=== PATIENT | female | born 1995 | race African-American/Black ===

== ENCOUNTER 2018-03-27 23:10 | Emergency (ER) | payer SELFPAY ==
[2018-03-28] MEDS ORDERED: IBUPROFEN 600 MG TABLET PO ONE (00:36)
--- NOTE | 2018-03-28 00:38 | ER Document Report ---
HPI - HPI Patient complains to provider of: right elbow injury Pain Level: 5 Context: Patient is a 22-year-old female that comes to the emergency department for chief complaint of right elbow injury, she states she lost balance, fell forward , and landed on her right elbow. She reports swelling and inability to extend at the elbow. She denies head injury, shoulder injury, back injury, or any other areas of pain. She denies any daily prescribed medications or medical problems. LMP within the past month. - REPRODUCTIVE Reproductive: DENIES: : Past Medical History - General Information source: Patient - Social History Smoking Status: Never Smoker Frequency of alcohol use: None Drug Abuse: None Lives with: Family Family History: None, Reviewed & Not Pertinent - Immunizations Immunizations up to date: Yes Hx Diphtheria, Pertussis, Tetanus Vaccination: Yes Vertical Provider Document - CONSTITUTIONAL General Appearance: WD/WN, No Apparent Distress - INFECTION CONTROL TRAVEL OUTSIDE OF THE [place] IN LAST 30 DAYS: No - HEENT HEENT: Atraumatic, Normal ENT Exam, Normocephalic - NECK Neck: Normal Inspection - RESPIRATORY Respiratory: Breath Sounds Normal, No Respiratory Distress - CARDIOVASCULAR Cardiovascular: Regular Rate, Regular Rhythm - GI/ABDOMEN Gastrointestinal: Abdomen Soft, Abdomen Non-Tender - BACK Back: Normal Inspection - MUSCULOSKELETAL/EXTREMETIES Musculoskeletal/Extremeties: Tender - Tender over the right elbow with questionable mild soft tissue swelling, range of motion at the elbow is normal, normal shoulder, wrist, hand exam, normal distal neurovascular exam. - NEURO Level of Consciousness: Awake, Alert, Appropriate - DERM Integumentary: Warm, Dry, No Rash Course - Re-evaluation Re-evalutation: There appears to be minimal soft tissue swelling over the right elbow her patient reports she injured the arm, no open wounds, she is able to extend without difficulty, normal examination otherwise with normal distal neurovascular exam. X-ray unremarkable. Appears to be soft tissue injury only. Discussed this with patient, provided her with a sling after discussion, she requests Toradol specifically for pain. She was provided with this, discussed additional care, follow-up, and return precautions. Patient states understanding and agreement. - Vital Signs Vital signs: Temp Pulse Resp BP Pulse Ox 98.3 F 96 114/60 99 03/27/18 23:24 03/27/18 23:24 03/27/18 23:24 03/27/18 23:24 Procedures - Immobilization right elbow Immobilizer type: Sling Performed by: PCT Post-Proc Neuro Vasc Exam: Normal Alignment checked and good: Yes Discharge - Discharge Clinical Impression: Injury of right elbow Qualifiers: Encounter type: initial encounter Qualified Code(s): S59.901A - Unspecified injury of right elbow, initial encounter Condition: Stable Disposition: HOME, SELF-CARE Additional Instructions: The x-ray does not show any fracture or concerning abnormality. This appears to be soft tissue injury only. Apply ice to the area 3-4 times a day for 10-15 minutes, rest, you can wear the sling, remember to take her elbow out of the spring frequently to perform range of motion. Take the medication as prescribed. Symptoms should resolve with time. If symptoms do not improve follow-up with orthopedics, return for any concerning symptoms including severe swelling or pain. Prescriptions: Ketorolac Tromethamine [Toradol 10 mg Tablet] 10 mg PO Q8HP PRN #24 tablet PRN Reason:
--- NOTE | 2018-03-28 01:41 | RADIOLOGY REPORT (SQ) ---
EXAM DESCRIPTION: XR ELBOW 3 VIEWS COMPLETED DATE/TME: 03/28/2018 00:35 CLINICAL HISTORY: 22 years, Female, fall, injury, pain COMPARISON: None. FINDINGS: 4 views of the right elbow. No acute fracture or dislocation. Normal osseous mineralization. No definite joint effusion. IMPRESSION: No acute fracture or dislocation. 2011 [employer]- All Rights Reserved
[2018-03-28 02:36] VITALS: BP 108/80
== END 2018-03-28 02:30 | disposition home or self-care (01) ==
LOC: ER 23:10
DX: S59.901A Unspecified injury of right elbow, initial encounter (principal); W01.0XXA Fall on same level from slipping, tripping and stumbling without subsequent striking against object, initial encounter
CPT/HCPCS: 99283

== ENCOUNTER 2019-11-13 20:45 | Emergency (ER) | payer SELFPAY ==
[2019-11-14] MEDS ORDERED: CEPHALEXIN 500 MG CAPSULE PO ONE (00:27)
[2019-11-14] MEDS ORDERED: IBUPROFEN 800 MG TABLET PO ONE (00:27)
--- NOTE | 2019-11-14 00:29 | ER Document Report ---
HPI - HPI Patient complains to provider of: Lump behind ear Time Seen by Provider: 11/13/19 23:59 Onset: This evening Onset/Duration: Sudden Quality of pain: Achy Pain Level: 3 Context: Patient states that she noticed that she had tenderness behind her right ear. Patient states when she felt the area she noticed a swelling. Patient denies any trauma to the area. Patient denies any fever. Patient denies any change in hearing. Exacerbated by: Denies Relieved by: Denies Similar symptoms previously: No Recently seen / treated by doctor: No - ROS ROS below otherwise negative: Yes Systems Reviewed and Negative: Yes All other systems reviewed and negative - CONSTITUTIONAL Constitutional: DENIES: Fever, Chills - EENT EENT: REPORTS: Ear Pain - GASTROINTESTINAL Gastrointestinal: DENIES: Nausea - REPRODUCTIVE Reproductive: DENIES: : - MUSCULOSKELETAL Musculoskeletal: DENIES: Neck Pain - DERM Skin Color: Normal Skin Problems: None Past Medical History - General Information source: Patient - Social History Smoking Status: Current Every Day Smoker Frequency of alcohol use: None Drug Abuse: None Occupation: [employer] Lives with: Family Family History: None, Reviewed & Not Pertinent - Medical History Medical History: Negative Renal/ Medical History: Denies: Hx Peritoneal Dialysis Surgical Hx: Negative - Immunizations Immunizations up to date: Yes Hx Diphtheria, Pertussis, Tetanus Vaccination: Yes Vertical Provider Document - CONSTITUTIONAL Agree With Documented VS: Yes Exam Limitations: No Limitations General Appearance: WD/WN, No Apparent Distress - INFECTION CONTROL TRAVEL OUTSIDE OF THE [place] IN LAST 30 DAYS: No - HEENT HEENT: Atraumatic, Normocephalic. negative: Pharyngeal Exudate, Pharyngeal Tenderness, Tympanic Membrane Red Notes: Patient with tender lymph nodes to the postauricular area bilaterally, 3 nodes noted behind the right ear, 1 noted behind the left ear. - NECK Neck: Normal Inspection, Supple. negative: Lymphadenopathy-Left, Lymphadenopathy-Right - RESPIRATORY Respiratory: Breath Sounds Normal, No Respiratory Distress - CARDIOVASCULAR Cardiovascular: Regular Rate, Regular Rhythm - MUSCULOSKELETAL/EXTREMETIES Musculoskeletal/Extremeties: MAEW, FROM - NEURO Level of Consciousness: Awake, Alert, Appropriate Motor/Sensory: No Motor Deficit - DERM Integumentary: Warm, Dry, Rash - Patient with dry flaking skin noted to scalp Course - Re-evaluation Re-evalutation: 05/09/20 Patient without any obvious wounds to the scalp or surrounding area. Patient without any findings worrisome for an otitis externa. Patient without any history of cat scratches or bites. Patient with mild flaking rash noted to scalp. Patient with bilateral postauricular lymphadenopathy. No overlying erythema, no mastoid tenderness or swelling. Good return precautions discussed with patient. Patient encouraged to follow-up with her primary doctor for further management. - Vital Signs Vital signs: Temp Pulse Resp BP Pulse Ox 97.9 F 84 16 107/59 L 100 11/13/19 23:24 11/13/19 23:24 11/13/19 23:24 11/13/19 23:24 11/13/19 23:24 Discharge - Discharge Clinical Impression: Lymphadenopathy Condition: Stable Disposition: HOME, SELF-CARE Instructions: Cephalexin ([facility]), Lymphadenopathy ([facility]) Additional Instructions: Return immediately for any new or worsening symptoms Followup with your primary care provider, call tomorrow to make a followup ap pointment Prescriptions: Cephalexin Monohydrate [Keflex 500 mg Capsule] 500 mg PO Q6H 5 Days #20 capsule Naproxen [Naprosyn 250 Nmg Tablet] 1 tab PO BID #14 tablet Referrals: [facility] [Provider Group] - Follow up as needed
[2019-11-14 00:50] VITALS: BP 114/59
== END 2019-11-14 00:53 | disposition home or self-care (01) ==
LOC: ER 20:45
DX: R59.0 Localized enlarged lymph nodes (principal); H92.09 Otalgia, unspecified ear; R21 Rash and other nonspecific skin eruption; F17.200 Nicotine dependence, unspecified, uncomplicated
CPT/HCPCS: 99283